=== PATIENT | female | born 2005 | race Caucasian/White ===

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

== ENCOUNTER 2024-08-10 09:28 | Emergency (ER) | payer OTHER, BC, SELFPAY ==
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
[2024-08-10 09:29] VITALS: BP 124/72; PULSE 78; RESP 16; TEMP 36.4; O2SAT 100
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
[2024-08-10 10:39] LABS: Strep Group A RT-PCR NOT DETECTED (Negative)
[2024-08-10 10:50] LABS: Influenza A QL RT-PCR Negative (Negative); Influenza B QL RT-PCR Negative (Negative); RSV RNA, RT-PCR Negative (Negative); SARS-CoV-2 RNA PCR Negative (Negative)
== END 2024-08-10 11:11 | disposition home or self-care (01) ==
PROVIDERS: Emergency Provider Physician Assistant; PCP Pediatrics
DX: S39.012A Strain of muscle, fascia and tendon of lower back, initial encounter (principal); J02.9 Acute pharyngitis, unspecified; Z20.822 Contact with and (suspected) exposure to COVID-19; V43.52XA Car driver injured in collision with other type car in traffic accident, initial encounter
CPT/HCPCS: 70450; 72110; 72125; 73060; 87637; 87651; 99284